=== PATIENT | male | born 2000 | race Caucasian/White ===

== ENCOUNTER 2024-03-19 06:50 | Emergency (ER) | payer OTHER ==
[~2024-03-19] VITALS: Ht 175.3 cm; Wt 96.5 kg
[2024-03-19 07:50] VITALS: BP 123/71; TEMP 97.6; O2SAT 98
== END 2024-03-19 08:13 | disposition home or self-care (01) ==
LOC: M ED 06:50
DX: S69.92XA Unspecified injury of left wrist, hand and finger(s), initial encounter (principal); Y92.9 Unspecified place or not applicable; Y93.9 Activity, unspecified; Y99.0 Civilian activity done for income or pay